=== PATIENT | female | born 2000 | race Caucasian/White ===

== ENCOUNTER 2018-04-23 11:09 | Emergency (ER) | payer OTHER ==
[2018-04-23] MEDS: ONDANSETRON (ODT) 4 MG TAB ODT (11:41)
[2018-04-23 11:44] LABS: URINE BLOOD (Dip) POC 3+ (NEGATIVE); URINE GLUCOSE (Dip) POC Negative (NEGATIVE); URINE KETONES (Dip) POC Negative (NEGATIVE); URINE LEUKOCYTE EST (Dip) POC Negative (NEGATIVE); URINE NITRITE (Dip) POC Negative (NEGATIVE); URINE TOTAL PROTEIN POC 1+ (NEGATIVE)
== END 2018-04-23 12:02 | disposition home or self-care (01) ==
LOC: FTE 11:09
DX: N94.6 Dysmenorrhea, unspecified (principal)
CPT/HCPCS: 81003; 81025; 99283

== ENCOUNTER 2018-08-04 01:30 | Emergency (ER) | payer OTHER ==
[2018-08-04] MEDS: ACETAMINOPHEN 325 MG TAB PO (03:21)
== END 2018-08-04 03:56 | disposition home or self-care (01) ==
LOC: FTE 01:30
DX: H66.91 Otitis media, unspecified, right ear (principal)
CPT/HCPCS: 99283; Z7502